=== PATIENT | male | born 1990 | race Asian ===

== ENCOUNTER 2022-09-03 11:22 | Emergency (ER) | payer OTHER ==
[~2022-09-03] VITALS: Ht 170.2 cm; Wt 84.8 kg
[2022-09-03 11:24] VITALS: BP 138/77; TEMP 98.2
--- NOTE | 2022-09-03 11:24 | NUR ---
BIBS STATING HE WAS CLEANING HIS CAR AND HIT HIS HEAD, LACERATION ON R SIDE OF HIS FOREHEAD, -KO. DENIES ANY PAIN. DR MUJICA AT BEDSIDE.
--- NOTE | 2022-09-03 11:42 | NUR ---
provider at bedside for laceration repair.
[2022-09-03 11:43] VITALS: O2SAT 99
--- NOTE | 2022-09-03 11:43 | NUR ---
Patient discharged to home in stable condition. Written and verbal after care instructions given. Patient verbalizes understanding of instruction.
== END 2022-09-03 11:43 | disposition home or self-care (01) ==
LOC: ER 11:31
DX: S01.01XA Laceration without foreign body of scalp, initial encounter (principal); W45.8XXA Other foreign body or object entering through skin, initial encounter; Y93.89 Activity, other specified; Y92.89 Other specified places as the place of occurrence of the external cause; Y99.8 Other external cause status